=== PATIENT | female | born 1970 | race American Indian/Alaskan Native ===

== ENCOUNTER 2019-01-23 05:54 | Observation (INO) | payer MEDICARE ==
--- NOTE | 2019-01-21 10:31 | Anesthesia Consultation ---
Anesthesia Consult and Med Hx Date of service: 01/23/19 - Airway Anesthetic Teeth Evaluation: Poor, Chipped ROM Head & Neck: Adequate (S/P ACDF) Mental/Hyoid Distance: Adequate Mallampati Class: Class II Intubation Access Assessment: Good - Pre-Operative Health Status ASA Pre-Surgery Classification: ASA2 Proposed Anesthetic Plan: General Nerve Block: TAP - Cardiovascular System Hx Peripheral Vascular Disease: Yes (Compression socks for "poor circulation" Pt states no arterial blockages) - Central Nervous System Hx Seizures: No (Hx Chapa's Palsy 2005) Hx Psychiatric Problems: No - Gastrointestinal Hx Gastroesophageal Reflux Disease: Yes - Endocrine Hx Liver Disease: Yes (Fatty Liver) Hx Non-Insulin Dependent Diabetes: Yes (Hgb A1C 5.5 per pt) - Hematic Hx Anemia: Yes (Iron infusion 2 yrs ago) - Other Systems Hx Cancer: No
[2019-01-21 10:32] LABS: Basophils % (Auto) 0.8 % (0.0-1.8); Eosinophils # (Auto) 0.2 K/mm3 (0.0-0.4); Eosinophils % (Auto) 5.6 % (0.0-4.3); Hematocrit 37.9 % (30.3-42.9); Hemoglobin 12.9 gm/dl (10.1-14.3); Lymphocytes # (Auto) 1.5 K/mm3 (1.2-5.4); Mean Corpuscular HGB Conc 34 % (30-34); Mean Corpuscular Volume 89 fl (79-97); Monocytes # (Auto) 0.4 K/mm3 (0.0-0.8); Monocytes % (Auto) 9.7 % (0.0-7.3); Platelet Count 239 K/mm3 (140-440); Red Blood Count 4.28 M/mm3 (3.65-5.03); Red Cell Distribution Width 13.6 % (13.2-15.2)
[2019-01-21 10:47] LABS: BUN/Creatinine Ratio 23; Blood Urea Nitrogen 9 mg/dL (7-17); Calcium 9.2 mg/dL (8.4-10.2); Hemolysis Index 13
[~2019-01-23 05:54] MED LIST: NACL 0.9% 1000 ML 1,000 ML IV SCH
[2019-01-23] MEDS ORDERED: LACTATED RINGERS 1,000 ML IV SCH (06:00)
--- NOTE | 2019-01-23 06:50 | History and Physical Report ---
History of Present Illness Date of examination: 01/23/19 Date of admission: 01/23/2019 Chief complaint: dysfunctional uterine bleeding History of present illness: 48-year-old with a history of dysfunctional uterine bleeding. The patient had a pelvic ultrasound that demonstrated findings of a submucosal leiomyoma. The patient has attempted medical management without significant improvement in her menorrhagia. Endometrial biopsy performed was negative. The patient elected for definitive surgical management. Past History Past Medical History: diabetes, high cholesterol, other (anemia; anxiety) Past Surgical History: other (herniated disc removal; tubal ligation; carpal tunnel release) REGISTERED OCCUPATIONAL THERAPIST History: fibroids Social history: - Obstetrical History : 3 Para: 3 Hx # Term Pregnancies: 3 Number of Pregnancies: 0 Spontaneous Abortions: 0 Induced : 0 Number of Living Children: 3 Medications and Allergies Allergies Allergy/AdvReac Type Severity Reaction Status Date / Time No Known Allergies Allergy Unverified 01/15/19 12:40 Home Medications Medication Instructions Recorded Confirmed Last Taken Type AtorvaSTATin [Lipitor] 20 mg PO QHS 01/15/19 01/15/19 Unknown History Esomeprazole Magnesium [Nexium] 40 mg PO DAILY 01/15/19 01/15/19 Unknown History Gabapentin [Neurontin] 300 mg PO TID 01/15/19 01/15/19 Unknown History metFORMIN [Glucophage] 500 mg PO BID 01/15/19 01/15/19 Unknown History Active Meds: Active Medications Lactated Ringer's (Lactated Ringers) 1,000 mls @ 75 mls/hr IV DIRECT GUILHERME Review of Systems All systems: negative Genitourinary: vaginal bleeding - Vital Signs Vital signs: Vital Signs Temp Pulse Resp BP Pulse Ox 98.9 F 76 18 113/73 99 01/21/19 10:05 01/21/19 10:05 01/21/19 10:05 01/21/19 10:05 01/21/19 10:05 Temp Pulse Resp BP Pulse Ox 98.9 F 76 18 113/73 99 01/21/19 10:05 01/21/19 10:05 01/21/19 10:05 01/21/19 10:05 01/21/19 10:05 - Physical Exam Breasts: Positive: deferred Cardiovascular: Regular rate Lungs: Positive: Clear to auscultation Results Result Diagrams: 01/21/19 10:10 01/21/19 10:10 All other labs normal. Assessment and Plan - Patient Problems (1) Submucous leiomyoma of uterus Current Visit: Yes Status: Acute Plan to address problem: Patient is scheduled for robotic hysterectomy and bilateral salpingo-oophorect ruba (2) Dysfunctional uterine bleeding Current Visit: Yes Status: Acute
[2019-01-23] MEDS ORDERED: ANCEF/STERILE WATER 2 GM/20 ML 2 GM/20 ML SYRINGE IV NR (07:00)
[2019-01-23] MEDS ORDERED: SUBLIMAZE ONE ×2 (07:01→07:24)
[2019-01-23] MEDS ORDERED: VERSED ONE (07:02)
[2019-01-23] MEDS ORDERED: XYLOCAINE 1% 20 mL ONE (07:03)
[2019-01-23] MEDS ORDERED: MARCAINE-EPI 0.25%-1:200,000 INFILTRATI ONE (07:04)
[2019-01-23] MEDS ORDERED: MARCAINE 0.5% INFILTRATI ONE (07:17)
[2019-01-23] MEDS ORDERED: GELFOAM POWDER 1GM MM ONE (07:17)
[2019-01-23] MEDS ORDERED: METHYLENE BLUE ONE (07:18)
[2019-01-23] MEDS ORDERED: NEOSPORIN GU IR ONE ×2 (07:18→09:31)
[2019-01-23] MEDS ORDERED: ZEMURON IV ONE (07:24)
[2019-01-23] MEDS ORDERED: XYLOCAINE MPF 2% ONE (07:24)
[2019-01-23] MEDS ORDERED: DIPRIVAN 10 MG/ML IV ONE (07:26)
--- NOTE | 2019-01-23 08:47 | Anesthesia Day of Surgery ---
Anesthesia Day of Surgery - Day of Surgery Patient Examined: Yes Patient H&P Reviewed: Yes Patient is NPO: Yes
[2019-01-23] MEDS ORDERED: ZOFRAN IV PRN ×2 (09:00→22:38)
[2019-01-23] MEDS ORDERED: NACL 0.9% IR ONE ×2 (09:31)
--- NOTE | 2019-01-23 10:07 | Operative Report ---
Operative Report Operative Report: Date of surgery: 01/23/2019 Preoperative diagnoses: Dysfunctional uterine bleeding; submucosal leiomyoma Postoperative diagnoses: Same as above Procedure: Robotic hysterectomy and bilateral salpingo-oophorectomy Surgeon: Parisa Aguilar M.D. Medical Superintendent: Adrián guzman Anesthesia: Gen. endotracheal anesthesia Estimated blood loss: 50 mL Pathology: Uterus, cervix, bilateral tubes and ovaries Indication: A 48-year-old with a history of dysfunctional uterine bleeding thought to be secondary to a submucosal leiomyoma. Procedure: The patient was taken to the operating room and given general endotracheal anesthesia without complication. She is prepped and draped in a normal sterile fashion. A bivalve speculum was placed in the patient's vagina and a single- tooth tenaculum placed on the anterior lip of the cervix. The uterus was sounded with the uterine sound. A [employer] uterine manipulator was placed in the bivalve speculum was then removed. Attention was then turned to the patient's abdomen where a 12 millimeter supra umbilical skin incision was then made. A Veress needle was placed and peritoneal entry was verified water-filled syringe. Insufflation of the peritoneal cavity was performed with CO2 gas. The 12 mm trocar was then placed under direct visualization. An additional 8 mm trocar was placed on the patient's left and right lateral side just opposite of the supraumbilical trocar. An additional 5 mm right lateral trocar was then placed as the accessory port. The Elmo Sewell device was used to close the fascia of the 12 mm incision. The patient was then placed in steep Trendelenburg. The da Jayne robot was then engaged. A fenestrated forcep was placed in arm 2 and a vessel sealer was placed in arm 1. The surgeon then transferred to the surgical console. The infundibulopelvic ligament was then isolated on the right. The vessel sealer was used to coagulate the ligament which was then transected. The tube and ovary were transected from the supply. The round ligament was then coagulated and transected also. The vesicouterine peritoneum was then entered from the patient's right side. The uterine vessels were then coagulated with the vessel sealer. The vessels were then transected . Attention was then turned to the patient's left side where the infundibulopelvic ligament and mesosalpinx were again isolated coagulated and transected. The vesical peritoneum was then entered from the left and joined in the midline. Peritoneum was reflected off of the lower uterine segment. Uterine vessels were then coagulated and then transected. The blood supply to the uterus was adequately contained, a posterior colpotomy was made. The V care ring was visualized. Posterior colpotomy was created with the monopolar scissors. The incision was continued circumferentially until anterior colpotomy was made. The cervix and uterus were amputated from the vaginal cuff. The uterus was then removed along with the tubes and ovaries bilaterally through the vagina and a warm laparotomy sponge was placed and maintain the pneumoperitoneum. The vaginal cuff was then closed in a running fashion with V lock suture. Irrigation of the pelvis was performed. Hemoblast was applied to the incision. The skin was then reapproximated with 4-0 Monocryl. The tissue was sent to pathology which included the cervix, uterus, tubes and ovaries. The patient was then successfully extubated. She was then taken to the recovery room in stable condition. All sponge laps and needle counts were correct x2.
[2019-01-23] MEDS ORDERED: NARCAN 0.4 MG/1 ML IV PRN (10:08)
[2019-01-23] MEDS ORDERED: PERCOCET 5/325 PO PRN (10:09)
[2019-01-23] MEDS ORDERED: IBUPROFEN PO PRN (10:09)
[2019-01-23] MEDS ORDERED: AMBIEN PO PRN (10:09)
[2019-01-23] MEDS ORDERED: TYLENOL PO PRN (10:09)
[2019-01-23] MEDS ORDERED: TORADOL ONE (10:10)
[2019-01-23] MEDS ORDERED: ROBINUL ONE (10:10)
[2019-01-23] MEDS ORDERED: BLOXIVERZ ONE (10:10)
[2019-01-23] MEDS ORDERED: ZOFRAN ONE (10:10)
[2019-01-23] MEDS: DILAUDID IV PRN ×2 (10:53→11:03)
[2019-01-23] MEDS ORDERED: DILAUDID ONE ×2 (10:54→11:03)
[2019-01-23] MEDS ORDERED: MORPHINE PCA 30MG/30ML IV SCH (11:00)
[2019-01-23] MEDS: D5LR 1,000 ML IV SCH ×2 (12:34→20:35)
[2019-01-23] MEDS ORDERED: CHLORASEPTIC MM PRN (18:09)
[2019-01-23] MEDS: TORADOL IV SCH ×2 (18:40→23:43)
[2019-01-23] MEDS ORDERED: MYLICON PO PRN (22:41)
[2019-01-24] MEDS: D5LR 1,000 ML IV SCH (04:06)
[2019-01-24 04:29] LABS: Hematocrit 30.1 % (30.3-42.9); Hemoglobin 10.3 gm/dl (10.1-14.3)
[2019-01-24] MEDS: TORADOL IV SCH ×2 (06:34→12:47)
--- NOTE | 2019-01-24 08:12 | Progress Note ---
Assessment and Plan - Patient Problems (1) Submucous leiomyoma of uterus Current Visit: Yes Status: Acute Plan to address problem: advance diet as tolerated routine postop care (2) Dysfunctional uterine bleeding Current Visit: Yes Status: Acute Subjective - Subjective Date of service: 01/24/19 Interval history: Patient states feeling nauseated last night. Tolerated clears. Denies flatus. Pryor has been removed. Patient reports: no flatus Objective - Vital Signs Latest vital signs: Vital Signs Temp Pulse Pulse Resp Resp BP BP 01/24/19 07:58 16 01/24/19 06:34 16 01/24/19 06:25 16 01/24/19 04:47 98.4 F 90 18 115/64 01/24/19 00:18 98.3 F 83 18 103/59 01/23/19 23:50 16 01/23/19 23:43 16 01/23/19 22:50 16 01/23/19 20:30 98.3 F 77 18 116/63 01/23/19 20:00 62 16 01/23/19 15:41 97.4 F L 88 20 115/72 01/23/19 12:12 97.3 F L 97 H 22 129/82 01/23/19 12:00 97.4 F L 81 12 112/77 01/23/19 11:30 96 H 12 125/82 01/23/19 11:24 12 01/23/19 11:15 81 12 127/85 01/23/19 11:03 12 01/23/19 11:00 85 12 136/89 01/23/19 10:53 13 01/23/19 10:45 78 13 136/82 01/23/19 10:40 88 16 132/85 01/23/19 10:35 91 H 15 138/89 01/23/19 10:30 97.3 F L 101 H 16 133/81 Pulse Ox 01/24/19 07:58 01/24/19 06:34 01/24/19 06:25 01/24/19 04:47 95 01/24/19 00:18 95 01/23/19 23:50 01/23/19 23:43 01/23/19 22:50 01/23/19 20:30 95 01/23/19 20:00 01/23/19 15:41 97 01/23/19 12:12 95 05/15/19 12:00 96 01/23/19 11:30 96 01/23/19 11:24 01/23/19 11:15 96 01/23/19 11:03 01/23/19 11:00 100 01/23/19 10:53 01/23/19 10:45 100 01/23/19 10:40 100 01/23/19 10:35 100 01/23/19 10:30 99 Intake and Output 01/23/19 01/24/19 01/24/19 22:59 06:59 14:59 Intake Total 1000 989.583 Output Total 650 400 Balance 350 589.583 Intake: IV 1000 939.583 D5lr 1,000 ml @ 125 mls/ 1000 939.583 hr IV DIRECT GUILHERME Rx#: [id number] Intake, Free Water 50 Output: Urine 650 400 Indwelling Catheter 650 400 Other: Total, Output Amount 450 400 Voiding Method Indwelling Catheter - Exam Abdomen: Present: normal appearance, soft Incision: Present: normal - Labs Labs: Abnormal lab results 01/23/19 01/23/19 01/24/19 Range/Units 10:41 15:51 04:16 Hct 30.1 L D (30.3-42.9) % POC Glucose 140 H 157 H (70-105)
--- NOTE | 2019-01-24 08:14 | Discharge Summary ---
Providers - Providers Date of Admission: 01/23/19 10:09 Date of discharge: 01/24/19 Attending physician: CHU LEAL Primary care physician: RAMSES HERNANDEZ Hospitalization Reason for admission: other (DUB) Procedure: other (Robotic hysterectomy and BSO) Incision: normal Discharge diagnosis: other (DUB) Hospital course: Patient was admitted the day of surgery and underwent a robotic hysterectomy and BSO. See op note. Postop unremarkable Condition at discharge: Good Disposition: DC-01 TO HOME OR SELFCARE - Discharge Diagnoses (1) Submucous leiomyoma of uterus Status: Acute (2) Dysfunctional uterine bleeding Status: Acute Plan - Discharge Medications Prescriptions: Docusate Sodium [Colace] 100 mg PO BID PRN #60 capsule PRN Reason: Constipation Ibuprofen [Motrin] 800 mg PO Q8HR PRN #60 tablet PRN Reason: Pain, Mild (1-3) Oxycodone HCl/Acetaminophen [Percocet 7.5/325 mg] 1 each PO Q6HR PRN #30 tablet PRN Reason: Pain - Provider Discharge Summary Activity: no sex for 6 weeks, no heavy lifting 4 weeks, no strenuous exercise Diet: routine Instructions: routine Additional instructions: [] Smoking cessation referral if applicable(refer to patient education folder for contact #) [] Refer to [facility] Booklet Call your doctor immediately for: * Fever > 100.5 * Heavy vaginal bleeding ( >1 pad per hour) * Severe persistent headache * Shortness of breath * Reddened, hot, painful area to leg or breast * Drainage or odor from incision. * Keep incision clean and dry at all times and follow doctor's instructions regarding bathing/showering Schedule followup in [address] Myers - Follow up plan
[2019-01-24 12:14] VITALS: BP 131/78
== END 2019-01-24 13:55 | disposition home or self-care (01) ==
LOC: OR 05:54 → OB 10:09
PROVIDERS: ADMIT Obstetrics & Gynecology; ATTEND Obstetrics & Gynecology
DX: D25.0 Submucous leiomyoma of uterus (principal); N93.8 Other specified abnormal uterine and vaginal bleeding; E11.9 Type 2 diabetes mellitus without complications; E78.00 Pure hypercholesterolemia, unspecified; D64.9 Anemia, unspecified; F41.9 Anxiety disorder, unspecified; Z98.51 Tubal ligation status; Z98.890 Other specified postprocedural states
CPT/HCPCS: 36415; 58552; 64450; 80048; 82962; 84703; 85014; 85018; 85025; 86850; 86900; 86901; 88307; 96374; 96375; 96376; A4217; G0378; J0690; J1170; J1885; J2250; J2270; J2405; J2704; J2710; J3010; J7120; J7121; S2900; A4649; Q9968